=== PATIENT | male | born 1965 | race Two or more races ===

== ENCOUNTER 2024-08-17 06:55 | Day surgery (SDC) | payer MEDICAID, SELFPAY ==
[2024-08-13 09:33] VITALS: BMI 23.7
[2024-08-17] VITALS (10 sets, daily range): BP systolic 110–149; BP diastolic 66–90; PULSE 54–71; RESP 18–21; TEMP 36.4–36.8; O2SAT 94–99; BMI 24.1
[2024-08-17] MEDS: SODIUM CHLORIDE 0.9% 500 ML 500 ML 20 ML IV (07:56)
[2024-08-17] MEDS: fentaNYL CIT INJ 50 mCg/ML AMP 2ML IVP (07:56)
[2024-08-17] MEDS: MIDAZOLAM INJ 1 MG/ML VIAL 2 ML 2 MG IVP (07:58)
== END 2024-08-17 09:05 | disposition home or self-care (01) ==
PROVIDERS: PCP Family Medicine; Referring Provider Surgery; Visit Provider Surgery
PROC: 0DBE8ZX Excision of Large Intestine, Via Natural or Artificial Opening Endoscopic, Diagnostic (ICD-10-PCS; CPT 45380; principal; 2024-08-17 07:30)
DX: K64.0 First degree hemorrhoids (principal); K57.31 Diverticulosis of large intestine without perforation or abscess with bleeding
CPT/HCPCS: 45378; J1200; J2250; J3010; J7999

== ENCOUNTER 2024-09-15 06:40 | Day surgery (SDC) | payer MEDICAID, SELFPAY ==
[2024-09-15] VITALS (10 sets, daily range): BP systolic 112–132; BP diastolic 71–93; PULSE 53–62; RESP 15–22; TEMP 36.5–36.8; O2SAT 93–100; BMI 28.4
[2024-09-15] MEDS: SODIUM CHLORIDE 0.9% 500 ML 500 ML 125 ML IV (07:23)
[2024-09-15] MEDS: MIDAZOLAM INJ 1 MG/ML VIAL 2 ML (ASD USE ONLY) 2 MG IVP (07:24)
[2024-09-15] MEDS: fentaNYL CIT INJ 50 mCg/ML AMP 2ML (ASD USE ONLY) IVP (07:24)
--- NOTE | 2024-09-15 07:49 | SUR.PHASEII ---
0742 patient is awake, alert, breathing unlabored, s/p colonoscopy under IV sedation, report received from Honey MARTIN.
--- NOTE | 2024-09-15 08:34 | SUR.PHASEII ---
0826 patient is awake, alert, breahting unlabored, able to ambulate to bathroom and pass gas, able to drink water with no nausea or vomiting, meets discharge criteria, discharge instructions given to patient and family member, patient discharged home in wheelchair with all belongings.
== END 2024-09-15 08:26 | disposition home or self-care (01) ==
PROVIDERS: Referring Provider Surgery; Visit Provider Surgery
PROC: 0DBE8ZX Excision of Large Intestine, Via Natural or Artificial Opening Endoscopic, Diagnostic (ICD-10-PCS; CPT 45380; principal; 2024-09-15 07:30)
DX: D12.8 Benign neoplasm of rectum (principal); K57.30 Diverticulosis of large intestine without perforation or abscess without bleeding; D12.0 Benign neoplasm of cecum; R19.5 Other fecal abnormalities
CPT/HCPCS: 45385; J1200; J2250; J3010; J7999